=== PATIENT | female | born 1990 | race Caucasian/White ===

== ENCOUNTER 2019-09-11 01:33 | Emergency (ER) | payer BC, MEDICAID ==
[2019-09-11 02:03] LABS: ABS Lymphocytes 4.3 10^3/ul (1.0-4.8); ABS Monocytes 0.6 10^3/ul (0-0.8); ABS Neutrophils 3.3 10^3/ul (1.5-7.7); Eosinophil % 0.2 %; Hematocrit 39 % (35-47); Hemoglobin 13.3 g/dL (12.0-16.0); Lymphocyte % 52.2 %; Mean Corpuscular HGB Conc 34 g/dL (31-36); Mean Corpuscular Hemoglobin 31 pg (27-31); Mean Corpuscular Volume 91 fL (80-97); Mean Platelet Volume 7.9 fL (7.4-10.4); Nucleated Red Blood Cells % 0.1; Platelet Count 291 10^3/uL (150-450); Red Blood Count 4.24 10^6 /uL (3.70-4.87); Red Cell Distribution Width 13 % (10-15); White Blood Count 8.3 10^3/uL (3.5-10.8)
--- NOTE | 2019-09-11 02:03 | ED ---
HPI Chest Pain - HPI Summary HPI Summary: Patient is a 29 y/o F presenting to the ED for a chief complaint of left anterior chest pain that radiates to the left UE. Patient notes that she was leaving work late after finishing at 23:30 when she began to feel the chest pain. She reports having left LE weakness, left UE paresthesia and numbness, upper back pain, nausea, and palpitations. Her left LE weakness has since resolved. She denies any aggravating or alleviating factors. She believes she is having a myocardial infarction. Patient denies any changes in medication or diet. PMHx is significant for epilepsy and GERD for which she takes Topamax and omeprazole, respectively. - History of Current Complaint Chief Complaint: EDChestPainROMI Time Seen by Provider: 09/11/19 01:51 Hx Obtained From: Patient Onset/Duration: Started Minutes Ago, Atraumatic, Still Present Timing: Constant Initial Severity: Moderate Current Severity: Moderate Pain Intensity: 4 Pain Scale Used: 0-10 Numeric Chest Pain Location: Left Anterior Chest Pain Radiates: Yes Chest Pain Radiates To:: Arm - Left Aggravating Factor(s): Nothing Alleviating Factor(s): Nothing Associated Signs and Symptoms: Positive: Chest Pain, Numbness - Left UE, Tingling - Left UE, Weakness - Left LE, resolved, Nausea, Palpitations, Back Pain - Upper - Allergy/Home Medications Allergies/Adverse Reactions: Allergies Allergy/AdvReac Type Severity Reaction Status Date / Time No Known Allergies Allergy Verified 09/11/19 01:41 Home Medications: Home Medications Omeprazole 40 mg PO DAILY 09/11/19 [History Confirmed 09/11/19] Topiramate TAB(*) [Topamax 100 mg tab] 100 mg PO DAILY 09/11/19 [History Confirmed 09/11/19] PMH/Surg Hx/FS Hx/Imm Hx Previously Healthy: Yes Endocrine/Hematology History: Denies: Hx Diabetes Cardiovascular History: Denies: Hx Hypercholesterolemia Sensory History: Denies: Hx Legally Blind, Hx Deafness Opthamlomology History: Denies: Hx Legally Blind EENT History: Denies: Hx Deafness - Surgical History Surgical History: None Surgery Procedure, Year, and Place: None Infectious Disease History: No Infectious Disease History: Denies: Traveled Outside the [place] in Last 30 Days - Family History Known Family History: Negative: Diabetes - Social History Occupation: Employed Full-time Lives: With Family Alcohol Use: None Hx Substance Use: No Substance Use Type: Reports: None Hx Tobacco Use: No Smoking Status (MU): Never Smoked Tobacco Review of Systems Positive: Palpitations, Chest Pain - Left anterior Positive: Nausea Positive: Myalgia - Upper back and left UE Positive: Weakness - Left LE, resolved, Paresthesia - Left UE, Numbness - Left UE All Other Systems Reviewed And Are Negative: Yes Physical Exam - Summary Physical Exam Summary: Appearance: Well-appearing, Well-nourished, lying in bed comfortably Skin: Warm, dry, no obvious rash Eyes: sclera anicteric, no conjunctival pallor ENT: mucous membranes moist, pharynx appears normal Neck: Supple, nontender Respiratory: Clear to auscultation, no signs of respiratory distress Cardiovascular: Normal S1, S2. No murmurs. Normal distal pulses in tibial and radial bilaterally. Abdomen: Soft, nontender, normal active bowel sounds present Musculoskeletal: Normal, Strength/ROM Intact Neurological: A&Ox3, awake and alert, mentation is normal, speech is fluent and appropriate Psychiatric: affect is normal, does not appear anxious or depressed Triage Information Reviewed: Yes Vital Signs On Initial Exam: Initial Vitals Temp Pulse Resp BP Pulse Ox 98.2 F 87 15 148/94 98 09/11/19 01:40 09/11/19 01:40 09/11/19 01:40 09/11/19 01:40 09/11/19 01:40 Vital Signs Reviewed: Yes Procedures - Sedation Patient Received Moderate/Deep Sedation with Procedure: No Diagnostics - Vital Signs Vital Signs Temp Pulse Resp BP Pulse Ox 09/11/19 01:40 98.2 F 87 15 148/94 98 - Laboratory Result Diagrams: 09/11/19 01:55 09/11/19 01:55 Lab Statement: Any lab studies that have been ordered have been reviewed, and results considered in the medical decision making process. - Radiology Chest X-ray Radiology Interpretation Completed By: ED Physician Summary of Radiographic Findings: Chest X-ray IMPRESSION: no acute process. Reviewed and interpreted by Dr. Gonsales, pending official radiology report. - EKG 01:34 Cardiac Rate: NL - 97 BPM EKG Rhythm: Sinus Rhythm ST Segment: Normal Ectopy: None Summary of EKG Findings: EKG at 01:34 shows NSR at 97 BPM, borderline T wave abnormalities, P waves and QRS complex are within normal limits, intervals are normal, no ischemic changes, no STEMI. This is a normal EKG. Reviewed and interpreted by Dr. Gonsales. Chest Pain Course/Dx - Course Course Of Treatment: Patient is a 29 y/o F presenting to the ED for a chief complaint of left anterior chest pain that radiates to the left UE. Patient notes that she was leaving work late after finishing at 23:30 when she began to feel the chest pain. She reports having left LE weakness, left UE paresthesia and numbness, upper back pain, nausea, and palpitations. Her left LE weakness has since resolved. She denies any aggravating or alleviating factors. She believes she is having a myocardial infarction. Patient denies any changes in medication or diet. PMHx is significant for epilepsy and GERD for which she takes Topamax and omeprazole, respectively. On exam, unremarkable findings. In the ED course, patient was given Ativan 1 mg IV. EKG at 01:34 shows NSR at 97 BPM, borderline T wave abnormalities, P waves and QRS complex are within normal limits, intervals are normal, no ischemic changes, no STEMI. This is a normal EKG. Laboratory findings: unremarkable. Troponin I is 0.00. Chest X- ray IMPRESSION: no acute process. Patient will be discharged with a diagnosis of paresthesia. Follow up with PCP as needed. - Diagnoses Provider Diagnoses: Paresthesia Discharge ED - Sign-Out/Discharge Documenting (check all that apply): Patient Departure - Discharge - Discharge Plan Condition: Good Disposition: HOME Patient Education Materials: Paresthesia (ED) Referrals: Ferdinand Campos MD [Medical Doctor] - - Billing Disposition and Condition Condition: GOOD Disposition: Home - Attestation Statements Document Initiated by Pingibe: Yes Documenting Scribe: Marjorie Keith Provider For Whom Ricky is Documenting (Include Credential): Junito Gonsales MD Scriboumar Attestation: Marjorie Angel scribed for Junito Gonsales MD on 09/11/19 at 0646. Scribe Documentation Reviewed: Yes Provider Attestation: The documentation as recorded by the Marjorie reeves accurately reflects the service I personally performed and the decisions made by , Junito Gonsales MD Status of Scribe Document: Viewed
[2019-09-11 02:07] LABS: INR 0.93 (0.82-1.09)
[2019-09-11 02:20] LABS: ALT 13 U/L (7-52); AST 14 U/L (13-39); Albumin/Globulin Ratio 1.3 (1-3); Alkaline Phosphatase 59 U/L (34-104); Anion Gap 6 mmol/L (2-11); BUN/Creatinine Ratio 12.3 (8-20); Blood Urea Nitrogen 10 mg/dL (6-24); CO2 Carbon Dioxide 23 mmol/L (22-32); Calcium 8.8 mg/dL (8.6-10.3); Chloride 111 mmol/L (101-111); EGFR African American 101.2 (>60); EGFR Non-African American 83.6 (>60); Globulin 3.2 g/dL (2-4); Glucose 90 mg/dL (70-100); Potassium 3.5 mmol/L (3.5-5.0); Sodium 140 mmol/L (135-145); Total Protein 7.2 g/dL (6.4-8.9)
[2019-09-11 02:25] LABS: HCG Pregnancy < 0.60 mIU/mL
[2019-09-11] MEDS ORDERED: Lorazepam PYXIS KEY PRN (03:12)
[2019-09-11] MEDS ORDERED: LORazepam INJ* 2 MG/ML 1 ML VIAL IV PUSH ONE (03:12)
[2019-09-11] MEDS ORDERED: Lorazepam PYXIS KEY ONE (03:18)
[2019-09-11 05:45] VITALS: BP 109/75
== END 2019-09-11 05:28 | disposition home or self-care (01) ==
LOC: ED 01:33
DX: R20.2 Paresthesia of skin (principal); R11.0 Nausea; R20.0 Anesthesia of skin; M54.6 Pain in thoracic spine; R00.2 Palpitations; K21.9 Gastro-esophageal reflux disease without esophagitis; G40.909 Epilepsy, unspecified, not intractable, without status epilepticus
CPT/HCPCS: 36415; 71046; 80053; 84484; 84702; 85025; 85610; 93005; 96374; 99283; J2060